=== PATIENT | female | born 1975 | race Caucasian/White ===

== ENCOUNTER → 2017-07-25 07:40 | Outpatient (CLI) | payer MEDICAID, SELFPAY ==
--- NOTE | 2017-07-06 10:17 | RAD_ITS ---
STUDY: X-RAY - LEFT KNEE REASON FOR EXAM: Female, 42 years old. Chronic knee pain. No history of recent injury. TECHNIQUE: 4 view(s) of the knee. COMPARISON: None. FINDINGS: Normal visualized distal femur. Normal visualized proximal tibia and fibula. Normal proximal tibiofibular articulation. There is no demonstrated fracture. There is mild narrowing of the medial femorotibial compartment. Normal lateral femorotibial compartment. Normal patellofemoral articulation. There is no demonstrated joint effusion. The soft tissue structures are unremarkable. RAD/Knee 4 or More Views IMPRESSION: Mild narrowing of the medial joint compartment. Electronically Signed: Rosas Ward MD at 3:34 EDT Tel , Service support ,
== END ==
PROVIDERS: Family Provider Family Medicine; PCP Family Medicine; Visit Provider Orthopaedic Surgery
DX: M25.562 Pain in left knee (principal)
CPT/HCPCS: 73564

== ENCOUNTER → 2017-07-29 10:22 | Outpatient (CLI) | payer MEDICAID, SELFPAY ==
--- NOTE | 2017-07-29 10:24 | MRI_ITS ---
STUDY: MRI LEFT KNEE REASON FOR EXAM: Left lateral knee pain status post injury. TECHNIQUE: Standardized fat and water weighted pulse sequences were obtained in all 3 orthogonal planes. COMPARISON: Radiographs 07/06/2017. FINDINGS: Normal medial meniscus. Normal hyaline cartilage of the medial femorotibial compartment. There is an enchondroma in the anterior aspect of the medial femoral condyle (T2 coronal image 22) measuring 1.4 cm in length. Normal medial collateral ligamentous complex (MCL). Normal distal semimembranosus, gracilis and semitendinosus tendons. There is a mild discoid configuration of the lateral meniscus and a horizontal tear of the free margin of the body/anterior horn of the lateral meniscus (proton-density coronal image 16; proton density sagittal image 32) with a parameniscal cyst (T2 coronal images 14-21). Normal hyaline cartilage of the lateral femorotibial compartment. Normal lateral femoral condyle and tibial plateau. Normal proximal tibiofibular articulation. Normal lateral collateral (fibular) ligament. Normal popliteus tendon. Normal biceps femoris tendon. Normal anterior cruciate ligament (ACL). Normal posterior cruciate ligament (PCL). There is mild lateral tilt of the patella (T2 axial image 10) without patellar subluxation. Normal hyaline cartilage of the patellofemoral compartment. Normal medial and lateral patellar retinaculum. Normal quadriceps tendon. Normal patellar tendon. Normal Hoffa's fat pad. There is no joint effusion. There is a thin medial patellar plica. There is edema in the anterior subcutis adipose space. The otherwise visualized osseous structures are unremarkable. MRI/Lower Ext Joint Only (Routine) IMPRESSION: Lateral meniscal tear with parameniscal cyst and mild discoid configuration. Mild lateral tilt of the patella. Enchondroma in the medial femoral condyle. Electronically Signed: Quintin Mccartney MD at 12:17 EDT Tel , Service support ,
== END ==
PROVIDERS: Family Provider Family Medicine; PCP Family Medicine; Visit Provider Orthopaedic Surgery
DX: S83.282A Other tear of lateral meniscus, current injury, left knee, initial encounter (principal)
CPT/HCPCS: 73721

== ENCOUNTER 2017-08-16 06:26 | Day surgery (SDC) | payer MEDICAID, SELFPAY ==
[2017-08-16] VITALS (7 sets, daily range): BP systolic 114–134; BP diastolic 71–91; PULSE 70–100; RESP 16–18; TEMP 35.9–37.2; O2SAT 94–100; BMI 42.0
[2017-08-16 06:46] LABS: Internal QC Validated? YES +Cl - CLEAR BKGD; Pregnancy, Urine Negative Negative
--- NOTE | 2017-08-16 07:12 | PCM.DC.ORTHO ---
Discharge Diet: No Restrictions Discharge Activity: Return to Normal Activity, May not drive while taking narcotic pain medications., May Shower, Use Crutches May shower in (days): 2 May resume sexual activity in: No Restrictions Ice area for (Minutes): 20 Weight Bearing Status: Weight bearing as tolerated Keep extremity elevated above heart level: Left Leg Additional Activity Instructions:: Weightbearing as tolerated and knee motion as tolerated Call your doctor if your incision/area has: Continuous Slow Oozing, Sudden Increased Bleeding, Increased Pain/ Swelling, Increased Redness, Foul Smelling Discharge, Swelling at the incision site Call your doctor if you observe: Fever of 101 or Higher, Coldness, Increased Pain, Numbness or Tingling, Change in Color, Inability to urinate, Inability to have a bowel movement, Shortness of breath, Dizziness, Fainting spells, Swelling in the ankles, Chest pain, Prolonged hiccoughing, Increased palpitations (irregular heartbeat), Calf discomfort, Uncontrolled pain Suture Line Care: Avoid Pulling/Pushing, Avoid Pinching/Bending Change Dressing in (Days):: 2 Remove Dressing in (days):: 2 Cleanse incision/area with: Soap & Water Additional Dressing/Incision Instructions:: Remove dressing on . May shower. Do not submerge wound. Replace dressing upon completion. Do not touch the wound without washing hands first. Allergies/Adverse Reactions: Allergies hydrocodone bitartrate [From Vicodin] Allergy (Verified 08/10/17 13:49) Hives Penicillins [PCN] Allergy (Verified 08/10/17 13:49) Hives Medications to take at Discharge Cetirizine HCl [Zyrtec] 10 mg PO DAILY 11/06/13 Multivitamins,Therapeutic [Multivitamin] 1 tab PO DAILY 11/06/13 Sertraline HCl [Zoloft] 100 mg PO DAILY 11/06/13 Vitamin B Complex 1 each PO DAILY 08/10/17 Docusate Sodium [Colace] 100 mg PO BID PRN PRN #10 cap 08/16/17 Oxycodone HCl/Acetaminophen [Percocet 5/325] 1 - 2 tablet PO Q4H PRN PRN #60 tablet 08/16/17 proMETHazine tablet [Phenergan] 25 mg PO Q4H PRN PRN #10 tab 08/16/17 The following prescriptions were given: Oxycodone HCl/Acetaminophen [Percocet 5/325] 1 - 2 tablet PO Q4H PRN PRN #60 tablet PRN Reason: Pain proMETHazine tablet [Phenergan] 25 mg PO Q4H PRN PRN #10 tab PRN Reason: Nausea Docusate Sodium [Colace] 100 mg PO BID PRN PRN #10 cap PRN Reason: Constipation Primary Care Physician: Inocencio Castillo MD [Primary Care Provider] - Please Follow Up With: Mario Islas DO When: call [facility] for appt for2 weeks Proposed Discharge Date: 08/16/17
[2017-08-16] MEDS: Clindamycin 900 MG/50 ML BAG 75 MG IV (08:26)
[2017-08-16] MEDS: Bupivacaine Mpf 0.5% 30 ML VIAL (09:15)
--- NOTE | 2017-08-16 09:25 | OP.PN_ITS ---
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 Pre-Operative Diagnosis: Left knee complex tear to the lateral meniscus with associated pericapsular cysts Post-Operative Diagnosis: Same as above Surgery/Procedure Performed:: Left knee arthroscopy with lateral meniscus debridement and intra-articular cyst decompression Description of Surgical Findings:: See dictation Estimated Blood Loss: 5 Specimen's removed: None Type of Anesthesia:: General ASA Class: ASA1 Normal Healthy Patient - Admit VTE Documentation VTE Present on Admission: No VTE Mechan Device Prophylaxis: SCD's, Knee High JOSHUA Hose VTE Pharm Prophylaxis ordered?: No Reason prophylaxis not ordered:: Treatment Not Indicated
--- NOTE | 2017-08-16 09:26 | PCM.OPRPT ---
Report of Operation Date of Procedure: 08/16/17 Pre-Operative Diagnosis: Left knee complex tear to the lateral meniscus with associated pericapsular cysts Post-Operative Diagnosis: Same as above Surgery/Procedure Performed:: Left knee arthroscopy with lateral meniscus debridement and intra-articular cyst decompression Description of Surgical Findings:: 42-year-old female with recalcitrant to left knee pain that failed nonoperative management to include NSAIDs active modifications physical therapy and injections. Patient had MRI that showed a complex tear to the lateral meniscus with horizontal component M. Meniscal cyst formation. Due to the complex tear of the meniscus and cyst formation my recommendation was for diagnostic knee scope and either an intra-articular cyst decompression versus open decompression and meniscus debridement. Patient may have the potential for meniscus repair based on the tear pattern. After appropriate counseling sent patient agreed to the aforementioned procedure. Patient was met in the holding area where the left lower extremity was marked and identified by the orthopedic surgeon. Timeout took place to identify operative procedure patient and limb. Patient received 900 clindamycin due to penicillin allergy. She had a well-placed tourniquet left proximal thigh. She was then prepped and draped in usual fashion. Left lower extremity was elevated Esmarch used for exsanguination and tourniquet was increased to 250 mmHg for roughly 30 minutes. Anterolateral portal was established and we entered into the intra-articular space. Superior lateral outflow portal was created. Patient had no meniscal pathology or signs of synovitis in the suprapatellar pouch. Patient had a pristine patella and trochlea. She had good tracking and no chondromalacia identified. Moved in the lateral gutter she had a normal popliteal hiatus. Moving the medial compartment established anteromedial portal. Medial compartment showed a pristine medial meniscus and cartilage. With good firmness. ACL and PCL were otherwise normal after an anterior synovectomy. We then moved into the lateral compartment. Patient had no chondromalacia to the lateral femoral condyle she does mild softening to the lateral tibial plateau. He can be seen grossly the patient had a complex parrot-beak tear to her lateral meniscus was somewhat larger and perhaps a discoid variant. Patient had obvious horizontal component to her meniscus as well. Using mechanical shaver and vapor the meniscus was debrided to a stable rim. Visualization from both the anterolateral and anteromedial portals did not reveal a true horizontal limb that could be resected. At that point time I elected to use the vapor cautery to [place] the loose ends of her meniscus which actually cleaned up very well after her meniscus debridement. At that point time having use the visit the MRI as referenced in the 3 o'clock position of the lateral meniscus I was able to move through gentle extracapsular expression down to the tibial plateau and in a posterior direction across the menisci with preservation of the capsule meniscal junction. Through this opening I was able to manually decompressed the cyst formations with some return of the typical synovial fluid that you would see grossly. This was done using a standard technique again with a mechanical shaver. I then probed the remaining portion of the capsular tissue to evaluate for any expression of fluid. Upon satisfactory completion of the decompression which again I am not sure was an overall pain generator for the patient based on her parrot-beak formation and mechanical symptoms I elected to place one horizontal mattress suture into the capsular meniscal junction to help reapproximate the soft tissues to prevent mechanical instability of the menisci. This was done using standard technique with 1 fast T fix from [employer]. Upon completion of the procedure the scope was retracted portal sites were closed with 3-0 nylon. She was injected with 30 cc of 0.5% Marcaine without epinephrine around the portal sites. She was then dressed in the usual fashion to include Xeroform 4 x 4's Kerlix roll ABD Sam wrap. Tourniquet was let down after roughly 30 minutes. We had no drains or complications and one implant again this included 1 fast T fix from [employer]. Patient will be weightbearing as tolerated and allowed range of motion as tolerated as well. I was scrubbed and available time during our procedure. If you require any further information please do not hesitate to contact me. 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
[2017-08-16] MEDS: oxyCODONE 5 MG Tablet 10 MG PO (10:15)
== END 2017-08-16 12:00 | disposition home or self-care (01) ==
LOC: SDC 06:27 → AC 06:28
PROVIDERS: Family Provider Family Medicine; PCP Family Medicine; Visit Provider Orthopaedic Surgery
PROC: (CPT 29870; principal; 2017-08-16 08:00)
DX: S83.272A Complex tear of lateral meniscus, current injury, left knee, initial encounter (principal); X58.XXXA Exposure to other specified factors, initial encounter; F41.9 Anxiety disorder, unspecified; F32.9 Major depressive disorder, single episode, unspecified; Z79.899 Other long term (current) drug therapy; I10 Essential (primary) hypertension; Z87.891 Personal history of nicotine dependence
CPT/HCPCS: 29881; 81025; J7120; J2405

== ENCOUNTER 2017-08-30 09:00 | Outpatient (RCR) | payer MEDICAID, SELFPAY ==
--- NOTE | 2017-08-30 09:47 | HP.PTEVAL_ITS ---
Patient's Visit Information IFEANYI BEE is a 42 year old F referred to Physical Therapy by Mario Islas DO with a diagnosis of Lateral Debridement of the knee. Date of Evaluation: 08/30/17 Physical Therapist: Stephanie Ortega - Visit Plan Frequency: 2x /Week Duration: 3 Weeks Plan: Focus on LE ROM and strength with functional mobility - Subjective Subjective: Patient reports surgery on the left knee was 2 weeks ago- injury before surgery had a torn meniscus was like that 2 years before she had it fixed. He went in and cleaned it out- went home after surgery. Lives with family and has one step at home. Once she is in she is all on one floor- fully I before surgery. 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 Patient reports the knee is stiff and she feels like there is a lump over the incision. Is still taking the Percoset- not when she is at home but when she?s at work after about 4 hours. Worst: 8/10 Agg: standing for long periods of time, bending. Best: 0/10 Eases: Percoset. Pain is located around the whole knee- radiates to the calf but not to the hip. Describes pain as ?pulled muscle feeling?. No N/ T in the leg or toes. No previous problems with the knee. PMHx: none Meds: Percoset, Zoloft, Zertec. Sleep: disturbed- wakes her- sleeps all over- but mostly side and belly. Saw MD post op on Tuesday- he wasn?t happy that she went back to work but he was happy with how things looked. Back to him in a few weeks. - Objective Posture: FH, RS, Increased kyphosis. Gait: decreased stance on the left LE- poor heel/toe pattern. Stairs: asc/desc 8 recip with poor control and decreased ROM with desc. HR/TR: WNL. SLS: WS but unable to SLS. Palpation: tender along medial and lateral joint line. Edema: moderate around patella. ROM: 0-85 degrees with pain at end range flexion. Strength: ankle: 5/5, Knee: 4 +/5, hip: 4+/5 Core: fair - Goals Goal 1:: Patient will be I with HEP and progression Goal Time Frame: 4-6 Weeks Goal 2:: Patient will ambulate >300 feet with a normalized gait pattern Goal Time Frame: 4-6 Weeks Goal 3:: Patient will asc/desc 8 stairs recip with 1 HR Goal Time Frame: 4-6 Weeks Goal 4:: Patient will demo 0-125 degrees of ROM Goal Time Frame: 4-6 Weeks - Rehabilitation Potential Physical Therapy Diagnosis: Patient presents with hypomobility- she has decreased ROM and strength leading to abnormal gait and increased pain with ADL' s Rehabilitation Potential: Good - Anticipated Interventions Patient/Client Instruction: Educate patient on: Benefits of Fitness Program Therapeutic Exercise to Include: Strength training, Endurance training, Balance training, Agility training, Body mechanics, Postural training, Flexibilty training, Gait and locomotor training, Passive ROM, Active ROM For the Purpose of:: To improve muscle performance and motor function TENS: Yes Cryotherapy (ice pack, ice massage): Yes Thermo therapy (hot pack): Yes Ultrasound (thermal/non thermal): Yes For the Purpose of:: To decrease pain, To decrease swelling/inflammation Thank you for the opportunity to evaluate your patient. For Medicare and Medicare HMO plans, please review the plan of care and approve it. It will need to be FAXED BACK to us at [phone] for Medicare purposes. Please let me know if there are questions or concerns regarding this plan of care. Physician Signature: Date:
--- NOTE | 2017-12-13 11:43 | HP.PT.NRP ---
HP - Discharge Summary (1) - Patient Information IFEANYI BEE was seen in my office for initial evaluation on 08/30/17. The following Plan of Care was established for this patient: Initial Frequency: 2x /Week Initial Duration: 3 Weeks - Anticipated Interventions Patient/Client Instruction: Educate patient on: Benefits of Fitness Program Therapeutic Exercise to Include: Strength training, Endurance training, Balance training, Agility training, Body mechanics, Postural training, Flexibilty training, Gait and locomotor training, Passive ROM, Active ROM For the Purpose of:: To improve muscle performance and motor function TENS: Yes Cryotherapy (ice pack, ice massage): Yes Thermo therapy (hot pack): Yes Ultrasound (thermal/non thermal): Yes For the Purpose of:: To decrease pain, To decrease swelling/inflammation This patient was last seen in our office . Pertinent comments regarding their Physical therapy will appear below: Patient has not attended physical therapy in over 8 weeks. At this time patient is appropriate for d/c and return to MD as needed. At this point I will be discontinuing this patient from physical therapy. I would be happy to see this patient again in the future if found appropriate by the physician. Thank you! Stephanie Ortega
== END 2017-08-30 19:00 | disposition home or self-care (01) ==
LOC: PT 09:00
PROVIDERS: Family Provider Family Medicine; PCP Family Medicine; Visit Provider Orthopaedic Surgery
DX: Z98.890 Other specified postprocedural states (principal)
CPT/HCPCS: 97110; 97161

== ENCOUNTER 2020-02-28 09:38 | Emergency (ER) | payer MEDICAID, SELFPAY ==
[2020-02-28 09:39] VITALS: BP 174/91; PULSE 110; RESP 18; TEMP 36.6; O2SAT 99; BMI 44.6
--- NOTE | 2020-02-28 10:03 | ED.VIS.GEN ---
History of Present Illness Chief Complaint: Other, Pain/Inj Informant: Patient Narrative: 44-year-old female states that she woke up Tuesday morning with a stiff neck. She states it is all right-sided and seems to be getting worse each day. She states the left side feels fine. She does not recall any injury to it. She denies any arm or leg symptoms. No fevers chills or rashes. She states it hurts to swallow. She states it hurts to turn her head in either direction. Past Medical History - Allergies and Home Meds Allergies/Adverse Reactions: Allergies dextromethorphan [From Mucinex DM] Allergy (Verified 02/28/20 09:41) Itching guaifenesin [From Mucinex DM] Allergy (Verified 02/28/20 09:41) Itching hydrocodone bitartrate [From Vicodin] Allergy (Verified 02/21/18 14:31) Hives Penicillins [PCN] Allergy (Verified 02/21/18 14:31) Hives Sulfa (Sulfonamide Antibiotics) Allergy (Verified 02/28/20 09:41) Itching Primary Care Physician: Inocencio Castillo MD [Primary Care Provider] - Surgical History: noncontributory Smoking Status: Former smoker Drugs: None Review of Systems General: Denies: Chills, Fever, Sweats Eyes: Denies: Visual changes - bilaterally, Diplopia ENT: Denies: Rhinorrhea, Sore throat Cardiovascular: Denies: Chest pain, Palpitations Respiratory: Denies: Dyspnea, Cough, Dyspnea on exertion Gastrointestinal: Denies: Abdominal pain, Nausea, Vomiting, Diarrhea, Melena, Hematochezia Genitourinary: Denies: Dysuria, Hematuria, Frequency Musculoskeletal: Reports: Neck pain. Denies: Back pain, Extremity Pain Skin: Denies: Rash, Wounds Neurological: Denies: Headache, Weakness, Numbness Physical Exam Vital Signs/Narrative: Vital Signs Temp Pulse Resp BP Pulse Ox 02/28/20 09:39 97.9 F 110 H 18 174/91 H 99 Inital Vital Signs reviewed: Yes General: Well nourished, Well developed, No Acute Distress Head: Normocephalic, Atraumatic Eyes: Perrl, EOMI ENT: Moist mucous membranes, No rhinorrhea Neck: - - Patient holds her head forward facing position. Painful range of motion. Tenderness at the the mastoid region. No erythema. No significant lymphadenopathy noted. Cardiovascular: Regular rate, Regular rhythm, No murmurs Respiratory: No distress, CTA bilaterally, Chest nontender Abdomen: Soft, Nontender, Nondistended, Normal bowel sounds Back: Nontender, Normal Inspection Extremities: Nontender, No edema Skin: Normal color, No rash Neurological: Alert, Oriented x3, Cranial nerves II-XII grossly intact, Normal Strength, Normal Sensation Psychological: Normal affect, Normal Mood Diagnostic/Tx/Re-eval - Medical Decision Making I believe this to be a muscular spasm. I will write for some muscle relaxants. Continued heat. This should improve. At this point I do not think this is a cervical radiculopathy she has no symptoms other than painful range of motion. Follow-up primary care if not improving ED Disposition - Plan for ED Patient: Disposition: Home or Assisted Living Diagnosis: Torticollis, acute Instructions: Torticollis (Wry Neck) Prescriptions: Diazepam [Valium] 5 mg PO Q8 PRN #15 tab PRN Reason: Muscle Spasm Prescription Printed Referrals: Inocencio Castillo MD [Primary Care Provider] - 3-5 Days if not improving
[2020-02-28 10:23] VITALS: O2SAT 99
== END 2020-02-28 10:26 | disposition home or self-care (01) ==
LOC: ED 10:20
PROVIDERS: Emergency Provider Emergency Medicine; PCP Family Medicine
DX: M43.6 Torticollis (principal); Z87.891 Personal history of nicotine dependence
CPT/HCPCS: 99282

== ENCOUNTER → 2020-03-05 15:19 | Outpatient (CLI) | payer MEDICAID, SELFPAY ==
[2020-02-28 09:39] VITALS: BMI 44.6
[2020-03-05 16:22] LABS: Hemoglobin A1c 5.3 % (3.8-5.6)
[2020-03-05 16:47] LABS: Thyroid Stim Hormone (TSH) 4.24 uIU/mL (0.358-3.74)
[2020-03-05 17:25] LABS: HIV - WCH Non-Reactive (Nonreactive)
[2020-03-06 08:22] LABS: Cholesterol 228 mg/dL (200); High Density Lipoprotein 52 mg/dL; Triglycerides 139 mg/dL; Very Low Density Lipoprotein 28 mg/dL (5-40)
== END ==
PROVIDERS: PCP Family Medicine
DX: Z01.89 Encounter for other specified special examinations (principal); R42 Dizziness and giddiness; Z13.1 Encounter for screening for diabetes mellitus; Z11.4 Encounter for screening for human immunodeficiency virus [HIV]
CPT/HCPCS: 36415; 80061; 83036; 84443; 86703